=== PATIENT | female | born 1940 | race Caucasian/White ===

== ENCOUNTER 2022-02-02 10:16 | Outpatient (CLI) | payer MEDICARE, BC, SELFPAY | END 2022-02-02 10:17 | disposition home or self-care (01) | LOC: ANHAUDASC 10:19 | PROVIDERS: PCP Internal Medicine | DX: H90.3 Sensorineural hearing loss, bilateral (principal) | CPT/HCPCS: 92557; 92567 ==

== ENCOUNTER 2022-07-12 10:00 | Emergency (ER) | payer MEDICARE, BC, SELFPAY ==
--- NOTE | ~2022-07-12 | XR_ITS ---
EXAMINATION: XR chest 2V DATE: 07/12/2022 10:40 INDICATION: Shortness of breath and cough TECHNIQUE: frontal and lateral views of the chest were obtained. COMPARISON: None FINDINGS: Mild hyperexpansion of the lungs. Increased primarily interstitial opacities in the posterior lower l johnny zones, best appreciated on the lateral projection. No pleural effusion or pneumothorax. The cardi omediastinal silhouette is normal. The thoracic dextro scoliosis with compensatory levoscoliosis at t he cervicothoracic and lumbosacral spine. Moderate to severe associated spondylosis. IMPRESSION: 1. Mild hyperexpansion lungs with increased interstitial opacities in the posterior lower lung zones which in the acute setting could represent pulmonary edema or pneumonia or more chronic interstitial lung disease. Reviewed, dictated and finalized at location A. [employer] IMPRESSION: 1. Mild hyperexpansion lungs with increased interstitial opacities in the poste rior lower lung zones which in the acute setting could represent pulmonary bryn a or pneumonia or more chronic interstitial lung disease.
[2022-07-12 10:12] VITALS: BP 130/69; PULSE 132; RESP 18; TEMP 37; O2SAT 98
--- NOTE | 2022-07-12 10:29 | ED.URI ---
HPI - URI/Sore Throat General Chief Complaint: Upper Respiratory Infection Stated Complaint: cough, congestion; requests chest xr Time Seen by Provider: 07/12/22 10:24 Source: patient Mode of arrival: ambulatory Limitations: no limitations History of Present Illness HPI Narrative: Patient presents today complaining 5 day history of fatigue, congestion, cough , and hoarseness. Her cough is now productive with green sputum. States she was seen 3 days ago at an urgent care, where an influenza swab and COVID-19 test were negative. She was given a prescription for Tessalon Perles. She has also been taking Mucinex and Delsym without much relief. Related Data Home Medications Medication Instructions Recorded Confirmed escitalopram oxalate 10 mg tablet mg 07/12/22 tamoxifen 20 mg tablet mg 07/12/22 Allergies Allergy/AdvReac Type Severity Reaction Status Date / Time No Known Allergies Allergy Verified 07/12/22 10:15 Review of Systems Review of Systems: CONSTITUTIONAL: Denies body aches, fever, chills, or sweats.+ fatigue EYES: Denies visual changes, redness, or discharge. ENT: Denies rhinorrhea, sore throat, or otalgia.+ congestion, hoarseness CARDIOVASCULAR: Denies chest pain, palpitations, or edema. RESPIRATORY: Denies dyspnea.+ cough GASTROINTESTINAL: Denies abdominal pain, nausea, vomiting, or diarrhea. GENITOURINARY: Denies dysuria or hematuria. SKIN: Denies rash, itching, or wounds. MUSCULOSKELETAL: Denies back pain, joint pain, or myalgia. NEUROLOGIC: Denies headache, numbness, tingling, or weakness. PSYCH: Denies depression or anxiety. PMFSH Comments At time of signature, I have reviewed and agree with nursing past medical, surgical, social and family history unless otherwise noted. Please see nursing chart for further information. There is no relevant family history pertinent to the presenting complaint Exam Narrative: GENERAL: mildly ill-appearing, well-nourished, and in no acute distress. HEAD: Normocephalic, atraumatic. EYES: EOMI. No redness or drainage. Conjunctivae normal. ENT: Mucous membranes pink and moist. Nares clear. No rhinorrhea. TMs normal bilaterally. Throat normal with small amount of postnasal drainage. Uvula midline.+ hoarse voice NECK: Normal AROM. Supple. No lymphadenopathy. CHEST: No respiratory distress. diminished in the bases, otherwise clear HEART: Regular rate and rhythm. No murmur appreciated. Normal peripheral pulses. EXTREMITIES: Normal range of motion. No edema. SKIN: Warm, dry, no rash. Capillary refill normal. Normal skin turgor. NEURO: No focal deficits. Alert and oriented x3. Gait steady. PSYCH: Normal affect. No signs of depression or anxiety. Course Course Level of Care: Express Care Visit Vital Signs Vital signs: Vital Signs Temperature 98.6 F 07/12/22 10:12 Pulse Rate 132 H 07/12/22 10:12 Respiratory Rate 18 07/12/22 10:12 Blood Pressure 130/69 07/12/22 10:12 Pulse Oximetry 98 07/12/22 10:12 Temperature 98.6 F 07/12/22 10:12 Pulse Rate 132 H 07/12/22 10:12 Respiratory Rate 18 07/12/22 10:12 Blood Pressure 130/69 07/12/22 10:12 Pulse Oximetry 98 07/12/22 10:12 Reviewed. Pt has been instructed to follow up with her PCP regarding her elevated blood pressure today. MDM - URI/Sore Throat Differential Diagnosis Differential diagnosis: Likely upper respiratory infection, viral infection, bronchitis and other ( pneumonia, laryngitis) Imaging Data Radiologist's impression: ITS Impressions Chest X-Ray 07/12/22 11:02 IMPRESSION: 1. Mild hyperexpansion lungs with increased interstitial opacities in the posterior lower lung zones which in the acute setting could represent pulmonary edema or pneumonia or more chronic interstitial lung disease. Critical Care Time Critical Care Time Critical Care Time: No Discharge Plan Discharge Clinical Impression: Pneumonia, Laryngitis Patient Di
--- NOTE | 2022-07-12 12:20 | PC.NURSE ---
1115 Chest xray completed, in room with her adult son.
== END 2022-07-12 11:35 | disposition home or self-care (01) ==
PROVIDERS: Emergency Provider Nurse Practitioner
DX: J18.9 Pneumonia, unspecified organism (principal); J04.0 Acute laryngitis
CPT/HCPCS: 71046; 99213; G0463

== ENCOUNTER 2022-12-22 09:05 | Emergency (ER) | payer MEDICARE, BC, SELFPAY ==
--- NOTE | 2022-12-22 09:08 | ED.URI ---
HPI - URI/Sore Throat General Chief Complaint: Upper Respiratory Infection Stated Complaint: COLD SYMPTOMS Time Seen by Provider: 12/22/22 09:08 Source: patient and RN notes reviewed History of Present Illness HPI Narrative: Patient is an 82-year-old female who presents to urgent care with complaints of cold-like symptoms off and on for 3 weeks. Patient states it started with a runny nose and within the last week she has developed a cough and some congestion. Patient has also had a slight hoarse voice. Patient admits to sleeping with a window open by her bed. States she has not taken anything [id number] for her symptoms. Patient did have pneumonia in June. Currently fever vomiting, chest discomfort or shortness of breath. No other acute complaints. No acute distress noted. Patient aware of the plan of care. Some parts of this dictation were generated by voice recognition software and may contain typographical and/or grammatical inaccuracies. Related Data Home Medications Medication Instructions Recorded Confirmed escitalopram oxalate 10 mg tablet 10 mg PO DAILY 07/12/22 12/22/22 tamoxifen 20 mg tablet 20 mg PO DAILY 07/12/22 12/22/22 rosuvastatin 5 mg tablet 5 mg PO DAILY 12/22/22 12/22/22 Allergies Allergy/AdvReac Type Severity Reaction Status Date / Time No Known Allergies Allergy Verified 12/22/22 09:31 Review of Systems Review of Systems: CONSTITUTIONAL: Denies fever, chills, or sweats. EYES: Denies visual changes, redness, or discharge. ENT: Reports rhinorrhea, hoarse voice, postnasal drainage CARDIOVASCULAR: Denies chest pain, palpitations, or edema. RESPIRATORY: Reports dry cough without dyspnea GASTROINTESTINAL: Denies abdominal pain, nausea, vomiting, or diarrhea. GENITOURINARY: Denies dysuria or hematuria. SKIN: Denies rash or itching. MUSCULOSKELETAL: Denies back pain, joint pain, or myalgia. NEUROLOGIC: Denies headache, numbness, or weakness. All other systems reviewed are negative, except as documented in HPI. PMFSH Comments At the time of my signature, I reviewed and agree with the nursing past medical, surgical, social, and family history. There is no relevant family history pertinent to the patient complaint. Exam Narrative: GENERAL: This is a well-nourished, well-developed patient, in no apparent distress. HEAD: normocephalic, atraumatic. EYES: PERRL. Sclera clear/white. Vision is grossly intact. EARS: External ears normal, auditory canals clear and without drainage, TMs normal without perforation. Hearing grossly intact. NOSE: External nose normal with no obvious nasal discharge, nares without redness, clear rhinorrhea. THROAT: Mucous membranes moist, posterior pharynx clear. Moderate postnasal drainage NECK: Neck supple RESPIRATORY: Clear to auscultation. Breath sounds equal bilaterally. No wheezes, rales, or rhonchi. SKIN: warm, intact with no suspicious lesions or rash, good texture and turgor. NEURO: awake, alert, and oriented to person, place and time. There were no obvious focal neurologic abnormalities. EXTREMITIES: No clubbing, cyanosis, or edema. Course Course Level of Care: Express Care Visit Vital Signs Vital signs: Vital Signs Temperature 97.2 F L 12/22/22 09:27 Pulse Rate 97 12/22/22 09:27 Respiratory Rate 16 12/22/22 09:27 Blood Pressure 135/87 12/22/22 09:27 Pulse Oximetry 98 12/22/22 09:27 Temperature 97.2 F L 12/22/22 09:27 Pulse Rate 97 12/22/22 09:27 Respiratory Rate 16 12/22/22 09:27 Blood Pressure 135/87 12/22/22 09:27 Pulse Oximetry 98 12/22/22 09:27 Reviewed MDM - URI/Sore Throat MDM Narrative Medical decision making narrative: Advised patient to complete the steroid regimen as prescribed. Be sure to eat and drink with medication. Would recommend a daily antihistamine such as Claritin or Zyrtec in conjunction with Flonase nasal spray. Use Mucinex, without pseudoephedrine, for cough. Do not sl
[2022-12-22 09:27] VITALS: BP 135/87; PULSE 97; RESP 16; TEMP 36.2; O2SAT 98
== END 2022-12-22 09:52 | disposition home or self-care (01) ==
PROVIDERS: Emergency Provider Nurse Practitioner Family
DX: J04.0 Acute laryngitis (principal); J00 Acute nasopharyngitis [common cold]; F41.9 Anxiety disorder, unspecified; F32.A Depression, unspecified; Z85.3 Personal history of malignant neoplasm of breast; Z90.12 Acquired absence of left breast and nipple
CPT/HCPCS: 99213; G0463